=== PATIENT | female | born 1980 | race Caucasian/White ===

== ENCOUNTER 2019-01-12 15:50 | Emergency (ER) | payer MEDICARE ==
[~2019-01-12] VITALS: Ht 160 cm; Wt 58.0 kg
[2019-01-12 15:54] VITALS: BP 120/77
== END 2019-01-12 17:15 | disposition home or self-care (01) ==
LOC: ER 15:50
DX: M25.562 Pain in left knee (principal)
CPT/HCPCS: 73564; 99283

== ENCOUNTER 2019-02-03 15:40 | Outpatient (CLI) | payer MEDICARE, OTHER | END 2019-02-03 17:00 | disposition home or self-care (01) | LOC: ORTHO 15:40 | PROVIDERS: ATTEND Orthopaedic Surgery | DX: M23.92 Unspecified internal derangement of left knee (principal) | CPT/HCPCS: G0463 ==

== ENCOUNTER 2019-03-03 13:05 | Outpatient (CLI) | payer OTHER | END 2019-03-03 23:59 | disposition home or self-care (01) | LOC: RAD 13:05 | PROVIDERS: ATTEND Orthopaedic Surgery | DX: S83.242A Other tear of medial meniscus, current injury, left knee, initial encounter (principal); M71.22 Synovial cyst of popliteal space [Baker], left knee; X58.XXXA Exposure to other specified factors, initial encounter; Y93.89 Activity, other specified; Y92.89 Other specified places as the place of occurrence of the external cause; Y99.8 Other external cause status | CPT/HCPCS: 73721 ==

== ENCOUNTER → 2019-04-12 | Outpatient (CLI) | payer OTHER | END | disposition home or self-care (01) | LOC: ORTHO 15:32 | PROVIDERS: ATTEND Orthopaedic Surgery | DX: S83.242D Other tear of medial meniscus, current injury, left knee, subsequent encounter (principal); X58.XXXD Exposure to other specified factors, subsequent encounter | CPT/HCPCS: G0463 ==